=== PATIENT | male | born 1955 | race Caucasian/White ===

== ENCOUNTER 2019-01-22 20:13 | Emergency (ER) | payer SELFPAY ==
[~2019-01-22] VITALS: Ht 177.8 cm; Wt 90.7 kg
[2019-01-22] MEDS ORDERED: IBUPROFEN 800 MG TAB PO ONE (22:30)
[2019-01-22] MEDS ORDERED: LIDOCAINE 1% HCL (LOCAL ANESTH.) INJ 20ML MDV ID ONE (22:30)
[2019-01-22 23:11] VITALS: BP 155/101
[2019-01-22] MEDS ORDERED: cefTRIAXone SOD 1,000 MG VL IM ONE (23:45)
== END 2019-01-22 23:48 | disposition home or self-care (01) ==
LOC: ER 20:26
DX: S01.511A Laceration without foreign body of lip, initial encounter (principal); E78.5 Hyperlipidemia, unspecified; I10 Essential (primary) hypertension; Z88.2 Allergy status to sulfonamides; W54.0XXA Bitten by dog, initial encounter; Y93.89 Activity, other specified; Y99.8 Other external cause status; Y92.89 Other specified places as the place of occurrence of the external cause
CPT/HCPCS: 12013; 96372; 99283; J0696; J2001